=== PATIENT | female | born 1995 | race Caucasian/White ===

== ENCOUNTER 2017-12-18 01:57 | Emergency (ER) | payer OTHER ==
[2017-12-18] MEDS ORDERED: Lidocaine 2% PF * 5 ML VIAL ONE (02:37)
[2017-12-18] MEDS ORDERED: NS 0.9% 1000 ML* 2,000 ML IV ONE (04:15)
[2017-12-18] MEDS ORDERED: Acetaminophen TAB* 325 MG PO ONE (04:16)
[2017-12-18] MEDS ORDERED: Insulin REGULAR(*) 1 UNITS UNIT IV PUSH ONE (04:17)
[2017-12-18] MEDS ORDERED: Metoclopramide IV* 5 MG/ML 2 ML VIAL IV SLOW PU ONE (04:17)
[2017-12-18 04:32] VITALS: BP 117/71
--- NOTE | 2017-12-18 05:57 | ED ---
Sonya Campoverde Thomas, scribed for Melia Gary MD on 12/18/17 at 0505 . Laceration/Wound HPI - HPI Summary HPI Summary: The patient is a 22 year old female presenting with a laceration to the base of her left foot after stepping on glass about an hour ago. - History of Current Complaint Stated Complaint: LEFT FOOT LAC Time Seen by Provider: 12/18/17 04:05 Hx Obtained From: Patient Onset/Duration: Lasting Hours - 1, Still Present Aggravating: Other - Touch Alleviating: Nothing Timing: Constant Onset Severity: Mild Current Severity: Mild Pain Intensity: 1 Pain Scale Used: 0-10 Numeric Associated Signs & Symptoms: Negative - fever PMH/Surg Hx/FS Hx/Imm Hx Endocrine/Hematology History: Denies: Hx Diabetes Cardiovascular History: Denies: Hx Myocardial Infarction Infectious Disease History: Denies: Traveled Outside the [place] in Last 30 Days - Family History Known Family History: Negative: Blood Disorder - Social History Occupation: Student Lives: Dormitory/Roommates Alcohol Use: None Hx Substance Use: No Substance Use Type: Reports: None Hx Tobacco Use: No Smoking Status (MU): Never Smoked Tobacco Review of Systems Negative: Epistaxis Positive: Other - Laceration All Other Systems Reviewed And Are Negative: Yes Physical Exam - Summary Physical Exam Summary: VITAL SIGNS: Reviewed. GENERAL: Patient is a well-developed and nourished female who is lying comfortable in the stretcher. Patient is not in any acute respiratory distress. HEAD AND FACE: No signs of trauma. No ecchymosis, hematomas or skull depressions. No sinus tenderness. EYES: PERRLA, EOMI x 2, No injected conjunctiva, no nystagmus. EARS: Hearing grossly intact. Ear canals and tympanic membranes are within normal limits. MOUTH: Oropharynx within normal limits. NECK: Supple, trachea is midline, no adenopathy, no JVD, no carotid bruit, no c- spine tenderness, neck with full ROM. CHEST: Symmetric, no tenderness at palpation LUNGS: Clear to auscultation bilaterally. No wheezing or crackles. CVS: Regular rate and rhythm, S1 and S2 present, no murmurs or gallops appreciated. ABDOMEN: Soft, non-tender. No signs of distention. No rebound no guarding, and no masses palpated. Bowel sounds are normal. EXTREMITIES: She has a 1 cm x 1 cm L-shaped laceration to the base of her left foot. FROM in all major joints, no edema, no cyanosis or clubbing. NEURO: Alert and oriented x 3. No acute neurological deficits. Speech is normal and follows commands. SKIN: Dry and warm Triage Information Reviewed: Yes Vital Signs On Initial Exam: Initial Vitals Pulse BP Pulse Ox 77 135/72 98 12/18/17 01:27 12/18/17 01:27 12/18/17 01:27 Vital Signs Reviewed: Yes Procedures - Procedure Summary Procedure Summary: LACERATION PROCEDURE NOTE: The patient was given 5 stitches on a 1 cm x 1 cm L-shaped laceration to her left foot. I used licocaine 2% with no Epi. Proleno 30 used. Diagnostics - Vital Signs Vital Signs Temp Pulse Resp BP Pulse Ox 12/18/17 03:30 97.8 F 78 16 117/71 100 12/18/17 03:27 117/71 12/18/17 03:00 78 99 12/18/17 02:57 81 139/78 98 12/18/17 02:26 77 98 12/18/17 01:27 77 135/72 98 - Laboratory Lab Statement: Any lab studies that have been ordered have been reviewed, and results considered in the medical decision making process. Laceration Repair Course/Dx - Course Assessment/Plan: The patient is a 22 year old female presenting with a laceration to the base of her foot after stepping on glass about an hour ago. The laceration was repaired. The patient was discharged home to follow up at urgent care or her primary care in 10-14 days for stiches removal. - Clinical Impression Provider Diagnoses: Laceration Discharge - Sign-Out/Discharge Documenting (check all that apply): Discharge - Discharge Plan Condition: Stable Disposition: HOME Additional Instructions: Follow up primary care or urgent care in 10-14 days for stitch removal. The documentation as recorded by the Sonya alberto Thomas accurately reflects the service I personally performed and the decisions made by Cookie nash Abdul, MD.
== END 2017-12-18 04:05 | disposition home or self-care (01) ==
LOC: ED 01:57
DX: S91.312A Laceration without foreign body, left foot, initial encounter (principal); W25.XXXA Contact with sharp glass, initial encounter; Y92.9 Unspecified place or not applicable
CPT/HCPCS: 12001; 99282